=== PATIENT | female | born 1945 | race Caucasian/White ===

== ENCOUNTER 2021-11-11 13:52 | Outpatient (CLI) | payer MEDICARE | END 2021-11-11 13:53 | disposition home or self-care (01) | LOC: CSHSPEC 13:52 | PROVIDERS: ATTEND Internal Medicine | DX: M48.061 Spinal stenosis, lumbar region without neurogenic claudication (principal); M54.50 Low back pain, unspecified; Z95.0 Presence of cardiac pacemaker; M47.816 Spondylosis without myelopathy or radiculopathy, lumbar region; M51.36 Other intervertebral disc degeneration, lumbar region; Z98.890 Other specified postprocedural states; M43.16 Spondylolisthesis, lumbar region | CPT/HCPCS: 71045; 72158 ==

== ENCOUNTER 2023-07-14 11:56 | Outpatient (CLI) | payer MEDICARE | END 2023-07-14 11:57 | disposition home or self-care (01) | LOC: CSHRAD 11:56 | PROVIDERS: ATTEND Neurological Surgery | DX: M54.50 Low back pain, unspecified (principal); Z98.890 Other specified postprocedural states; M47.816 Spondylosis without myelopathy or radiculopathy, lumbar region | CPT/HCPCS: 72100 ==

== ENCOUNTER 2024-08-28 11:00 | Outpatient (CLI) | payer MEDICARE | END 2024-08-28 13:00 | disposition home or self-care (01) | LOC: CSHULT 11:00 | PROVIDERS: ATTEND Internal Medicine Cardiovascular Disease | DX: I35.0 Nonrheumatic aortic (valve) stenosis (principal) | CPT/HCPCS: 93312 ==

== ENCOUNTER → 2024-08-28 | Day surgery (SDC) | payer MEDICARE ==
[~2024-08-28] MED LIST: FLU (Fluad Triv) TS24-25 (65UP)/MF59C/PF 45 MCG/0.5 ML Syringe IM ONE; PROPOFOL 20 ML ONE
[2024-08-28 11:58] VITALS: BP 143/87; TEMP 98.8
== END ==
LOC: CSHSDC 10:44
PROVIDERS: ATTEND Internal Medicine Cardiovascular Disease
PROC: B24BZZ4 Ultrasonography of Heart with Aorta, Transesophageal (ICD-10-PCS; principal; 2024-08-28)
DX: I35.0 Nonrheumatic aortic (valve) stenosis (principal); I48.0 Paroxysmal atrial fibrillation; I49.5 Sick sinus syndrome; I10 Essential (primary) hypertension; E78.5 Hyperlipidemia, unspecified; E03.9 Hypothyroidism, unspecified; J18.9 Pneumonia, unspecified organism; M19.90 Unspecified osteoarthritis, unspecified site; Z90.710 Acquired absence of both cervix and uterus; Z90.89 Acquired absence of other organs; Z98.41 Cataract extraction status, right eye; Z98.42 Cataract extraction status, left eye; Z96.653 Presence of artificial knee joint, bilateral; Z96.643 Presence of artificial hip joint, bilateral; Z95.0 Presence of cardiac pacemaker; Z98.890 Other specified postprocedural states; Z88.0 Allergy status to penicillin; Z88.1 Allergy status to other antibiotic agents; Z79.890 Hormone replacement therapy; Z79.51 Long term (current) use of inhaled steroids; Z79.899 Other long term (current) drug therapy
CPT/HCPCS: 93312; J2704

== ENCOUNTER 2024-11-01 15:19 | Outpatient (CLI) | payer MEDICARE | END 2024-11-01 15:20 | disposition home or self-care (01) | LOC: CSHCP 15:19 | PROVIDERS: ATTEND Internal Medicine Cardiovascular Disease | DX: R06.02 Shortness of breath (principal); J98.4 Other disorders of lung | CPT/HCPCS: 94060; 94726; 94729; 94760 ==

== ENCOUNTER 2024-11-15 09:59 | Outpatient (CLI) | payer MEDICARE | END 2024-11-15 10:00 | disposition home or self-care (01) | LOC: CSHCT 09:59 | PROVIDERS: ATTEND Internal Medicine Cardiovascular Disease | DX: R94.2 Abnormal results of pulmonary function studies (principal); J84.9 Interstitial pulmonary disease, unspecified; R06.09 Other forms of dyspnea; J84.10 Pulmonary fibrosis, unspecified | CPT/HCPCS: 71250 ==